=== PATIENT | male | born 1980 | race Caucasian/White ===

== ENCOUNTER 2023-09-16 13:23 | Emergency (ER) | payer MEDICAID ==
[~2023-09-16] VITALS: Ht 167.6 cm; Wt 82.0 kg
[2023-09-16] MEDS: HYDROCODONE/ACETAMINOPHEN 5/325MG TABLET PO ONE (14:01)
[2023-09-16] MEDS: IBUPROFEN 600MG TABLET PO ONE (14:02)
[2023-09-16] MEDS: PROPOFOL 200MG/20ML VIAL IV ONE (15:15)
[2023-09-16] MEDS: FENTANYL CITRATE/PF 50MCG/ML 2ML VIAL IV ONE (15:15)
[2023-09-16 16:35] VITALS: O2SAT 98
[2023-09-16] MEDS ORDERED: HYDR-4001 MT (17:17)
[2023-09-16] MEDS ORDERED: IBUP-2029 MT (17:17)
[2023-09-16] MEDS ORDERED: HYDROCODONE/ACETAMINOPHEN 10/325MG TABLET PO ONE ×2 (17:45)
[2023-09-16 17:53] VITALS: BP 140/80; PULSE 65; RESP 18; TEMP 98.4
[2023-09-16] MEDS: HYDROCODONE/ACETAMINOPHEN 10/325MG TABLET PO ONE (18:00)
== END 2023-09-16 18:02 | disposition home or self-care (01) ==
LOC: ER 13:23
DX: S92.251A Displaced fracture of navicular [scaphoid] of right foot, initial encounter for closed fracture (principal); W18.39XA Other fall on same level, initial encounter; Y93.89 Activity, other specified; Y92.89 Other specified places as the place of occurrence of the external cause; Y99.8 Other external cause status
CPT/HCPCS: 73080; 73090; 73110; 25605; 99152; 99291; J3010; J2704; Z7610; A4565